=== PATIENT | female | born 1955 | race African-American/Black ===

== ENCOUNTER 2019-12-01 08:26 | Outpatient (CLI) | payer MEDICARE, MEDICAID, SELFPAY ==
[2019-12-01 09:18] LABS: Basophils Percent Auto 0.4 % (0.2-1.2); Eosinophils Absolute Auto 0.2 K/mm3 (0-0.3); Eosinophils Percent Auto 2.3 % (0-4.4); Hematocrit 40.6 % (37.0-47.0); Hemoglobin 12.9 g/dL (12.0-15.0); Immature Granulocyte Absolute 0.03 K/mm3 (0.00-0.031); Immature Granulocyte Percent A 0.4 % (0-0.5); Lymphocytes Absolute Auto 3.84 K/mm3 (0.9-3.2); Lymphocytes Percent Auto 55.3 % (18.3-44.2); Mean Corpuscular HGB Conc 31.8 g/dl (32-36); Mean Corpuscular Hemoglobin 27.6 pg (26-34); Mean Corpuscular Volume 86.9 fl (80-100); Mean Platelet Volume 10.2 fl (7.4-10.4); Monocytes Absolute Auto 0.5 K/mm3 (0.1-0.6); Monocytes Percent Auto 6.5 % (2.6-8.5); Neutrophils Absolute Auto 2.4 K/mm3 (1.3-6.7); Neutrophils Percent Auto 35.1 % (45.5-73.1); Platelet Count Result 279 k/mm3 (150-375); Red Blood Count 4.67 M/mm3 (4.2-5.4); Red Cell Distribution Width 12.9 % (11.5-14.5)
[2019-12-01 09:45] LABS: Creatinine Urine 102.8 mg/dL
[2019-12-01 09:51] LABS: MALB Creatinine Ratio < 5.8 mg/g (0-30); Microalbumin Urine Random < 6.0 mg/L (0-16.7)
[2019-12-01 09:59] LABS: Free T4 Free Thyroxine 0.99 ng/mL (0.78-2.19); Vitamin D 25 Hydroxy 13.2 ng/mL
[2019-12-01 11:01] LABS: Alanine Aminotransferase 18 U/L (4-35); Albumin Level 4.1 g/dL (3.5-5.1); Alkaline Phosphatase 96 U/L (38-126); Aspartate Amino Transferase 21 U/L (14-36); Bilirubin,Total 0.3 mg/dL (0.2-1.3); Blood Urea Nitrogen 11 mg/dL (7-17); Calcium 9.5 mg/dL (8.4-10.2); Carbon Dioxide 25 mmol/L (22-30); Chloride 103 mmol/L (98-107); Cholesterol 171 mg/dL (0-200); Estimated Glomerular Filt Rate > 60; Glucose 101 mg/dL (65-105); HDL Direct 43 mg/dL; Potassium 4.1 mmol/L (3.4-5.0); Sodium 141 mmol/L (137-145); Triglycerides 101 mg/dL (<150)
[2019-12-01 11:12] LABS: LDL Cholesterol Direct 98 mg/dL
[2019-12-01 11:20] LABS: Hemoglobin A1C 5.9 % (<5.7)
[2019-12-01 11:31] LABS: Total Triiodothyronine (T3) 1.37 NG/ML (0.97-1.69)
== END 2019-12-01 08:27 | disposition home or self-care (01) ==
PROVIDERS: PCP Family Medicine; Visit Provider Family Medicine
DX: K21.9 Gastro-esophageal reflux disease without esophagitis (principal); I10 Essential (primary) hypertension; E11.9 Type 2 diabetes mellitus without complications; E55.9 Vitamin D deficiency, unspecified; R80.9 Proteinuria, unspecified
CPT/HCPCS: 36415; 80053; 80061; 82043; 82306; 83036; 84439; 84443; 84480; 85025

== ENCOUNTER 2020-10-10 11:46 | Outpatient (CLI) | payer MEDICARE, MEDICAID, SELFPAY ==
[2020-10-10 12:22] LABS: Basophils Percent Auto 0.5 % (0.2-1.2); Eosinophils Absolute Auto 0.1 K/mm3 (0-0.3); Eosinophils Percent Auto 1.7 % (0-4.4); Hematocrit 41.8 % (37.0-47.0); Hemoglobin 13.3 g/dL (12.0-15.0); Immature Granulocyte Absolute 0.02 K/mm3 (0.00-0.031); Immature Granulocyte Percent A 0.3 % (0-0.5); Lymphocytes Absolute Auto 2.86 K/mm3 (0.9-3.2); Lymphocytes Percent Auto 45.3 % (18.3-44.2); Mean Corpuscular HGB Conc 31.8 g/dl (32-36); Mean Corpuscular Hemoglobin 28.2 pg (26-34); Mean Corpuscular Volume 88.6 fl (80-100); Mean Platelet Volume 9.5 fl (7.4-10.4); Monocytes Absolute Auto 0.4 K/mm3 (0.1-0.6); Neutrophils Absolute Auto 2.9 K/mm3 (1.3-6.7); Neutrophils Percent Auto 45.2 % (45.5-73.1); Platelet Count Result 286 k/mm3 (150-375); Red Blood Count 4.72 M/mm3 (4.2-5.4); Red Cell Distribution Width 12.9 % (11.5-14.5); White Blood Count 6.3 K/mm3 (4.5-10.0)
[2020-10-10 12:34] LABS: Alanine Aminotransferase 19 U/L (4-35); Albumin Level 3.9 g/dL (3.5-5.1); Alkaline Phosphatase 88 U/L (38-126); Anion Gap 8 mmol/L (8-16); Aspartate Amino Transferase 20 U/L (14-36); Bilirubin,Total 0.5 mg/dL (0.2-1.3); Blood Urea Nitrogen 7 mg/dL (7-17); Carbon Dioxide 26 mmol/L (22-30); Chloride 107 mmol/L (98-107); Cholesterol 165 mg/dL (0-200); Estimated Glomerular Filt Rate > 60; Glucose 115 mg/dL (65-105); HDL Direct 40 mg/dL; Sodium 141 mmol/L (137-145); Triglycerides 227 mg/dL (<150)
[2020-10-10 12:36] LABS: Hemoglobin A1C 5.8 % (<5.7)
[2020-10-10 12:46] LABS: LDL Cholesterol Direct 88 mg/dL
[2020-10-10 12:52] LABS: Creatinine Urine 129.8 mg/dL
[2020-10-10 13:04] LABS: MALB Creatinine Ratio < 4.6 mg/g (0-30); Microalbumin Urine Random < 6.0 mg/L (0-16.7)
[2020-10-10 13:05] LABS: Total Triiodothyronine (T3) 1.51 NG/ML (0.97-1.69)
[2020-10-10 13:07] LABS: Free T4 Free Thyroxine 0.81 ng/mL (0.78-2.19)
== END 2020-10-10 11:47 | disposition home or self-care (01) ==
LOC: ANHLAB 11:51
PROVIDERS: PCP Family Medicine; Visit Provider Nurse Practitioner
DX: E55.9 Vitamin D deficiency, unspecified (principal); R73.01 Impaired fasting glucose; E66.01 Morbid (severe) obesity due to excess calories; I10 Essential (primary) hypertension; Z00.00 Encounter for general adult medical examination without abnormal findings
CPT/HCPCS: 36415; 80053; 80061; 82043; 82306; 83036; 84439; 84443; 84480; 85025

== ENCOUNTER 2021-02-07 20:03 | Inpatient (IN) | payer MEDICARE, MEDICAID, SELFPAY ==
--- NOTE | ~2021-02-07 | MR_ITS ---
EXAMINATION: MR brain/brain stem wo/w con DATE: 02/08/2021 12:31 INDICATION: Slurred speech. TECHNIQUE: Magnetic resonance imaging (MRI) of the brain and brainstem was performed without and with 20 mL MultiHance intravenous contrast. Sequences included sagittal and axial T1-weighted FSE, axial diffusion-weighted FS EPI, axial T2*-weighted GRE, axial T2-weighted FLAIR Propeller, and axial T2-we ighted Propeller. Postcontrast sequences included axial and coronal T1-weighted FSE. Apparent diffusi on coefficient (ADC) maps were created. COMPARISON: Head CT 02/08/2021, brain MRI 10/27/2007 FINDINGS: There are acute infarcts in the left basal ganglia and internal capsule. There is an old in farct involving the right basal ganglia, internal capsule, and metcalf radiata. There are scattered ar eas of nonspecific increased T2-weighted signal intensity in the cerebral white matter. There is no i ntracranial hemorrhage or abnormal mass lesion. The ventricles are normal in size. The orbits are nor mal. The paranasal sinuses are clear. The mastoid air cells are normal. IMPRESSION: 1. Acute infarcts in the left basal ganglia and internal capsule. 2. Old infarct involving the right basal ganglia, internal capsule, and metcalf radiata. 3. Mild nonspecific cerebral white matter disease, which likely represents chronic small vessel ische karson disease. Reviewed, dictated and finalized at location A. IMPRESSION: 1. Acute infarcts in the left basal ganglia and internal capsule. 2. Old infarct involving the right basal ganglia, internal capsule, and metcalf radiata. 3. Mild nonspecific cerebral white matter disease, which likely represents calculation reviewer queenie small vessel ischemic disease.
--- NOTE | ~2021-02-07 | CT_ITS ---
EXAMINATION: CTA brain carotid EXAM DATE: 02/08/2021 10:02 INDICATION: Headache and dizziness. History of stroke. TECHNIQUE: Noncontrast head CT. Spiral CTA of the carotid arteries was performed with intravenous i njection 100 cc of Omnipaque 350. Axial, coronal, sagittal reformatted images reviewed. Additional r eformatted images created on dedicated 3-D workstation. NASCET comparable standard used to assess th e degree of arterial stenosis. Spiral CT angiogram cerebral arteries performed with the same intrave nous injection of contrast. Source images of the brain CTA transferred to dedicated workstation for 3 -D rotational image creation. Coronal, sagittal maximum intensity pixel images also reviewed. The d ose-length product (DLP) for this examination was 1611.91 mGy-cm. The exposure was tailored accordi ng to patient size, and iterative reconstruction (ASIR) was used as additional dose reduction techniq ue. Comparison is made to prior examination from 10/29/2018. FINDINGS: There is no carotid bulb plaque, 0% stenosis bilaterally. The left vertebral artery is barbara nant. Basilar artery fenestration, not a clinically significant finding. There is no carotid or vert ebral basilar arterial dissection or fibromuscular dysplasia. There are no cerebral artery aneurysms. There is symmetric cerebral artery arborization. The sagittal, transverse and sigmoid sinuses enhanc e normally, no venous sinus thrombosis. Internal cerebral veins also enhance normally. There is no acute intraparenchymal hemorrhage. No evidence of intraparenchymal brain mass lesion. N o evidence of acute infarction. There is mild periventricular and subcortical hypodensity, nonspecifi c but probably related to small vessel ischemic disease. There is mild prominence of the sulci and ventricles related to cerebral atrophy. There is intracranial carotid arteriosclerosis. There is no mass effect or midline shift. There is no obstructive hydrocephalus suspected. There are no extra -axial collections. There are no calvarial acute fractures. Mild apical emphysema. IMPRESSION: 1. No acute carotid or intracranial findings. 2. Bilateral carotid bulb 0% stenosis. 3. Mild age-related intracranial findings. Reviewed, dictated and finalized at location A.
--- NOTE | ~2021-02-07 | CT_ITS ---
EXAMINATION: CT brain wo con DATE: 02/07/2021 22:07 INDICATION: Headache TECHNIQUE: Computed tomography (CT) of the head was performed without intravenous contrast. Sagittal and coronal reconstructions were performed. The mA was adjusted according to patient size. Iterative reconstruction technique was employed. The dose-length product was 605.33 mGy-cm. COMPARISON: head CT dated 10/29/2018 FINDINGS: No acute intracranial hemorrhage, acute infarction or abnormal extra axial fluid collection. No inter sandi change in mild scattered white matter hypoattenuation most prominent in the deep right frontal wh ite matter. Ventricles are normal and symmetric. No mass/mass effect. Mild intracranial calcified cer ebral atherosclerosis is noted at the carotid siphons. The orbits, paranasal sinuses and mastoid air cells are normal. IMPRESSION: 1. Unchanged mild nonspecific cerebral white matter hypoattenuation consistent with chronic small ves lilliam ischemic disease. No acute intracranial process. Reviewed, dictated and finalized at location A. IMPRESSION: 1. Unchanged mild nonspecific cerebral white matter hypoattenuation consistent with chronic small vessel ischemic disease. No acute intracranial process.
[2021-02-07 20:10] VITALS: BP 132/63; PULSE 80; RESP 15; TEMP 36.3; O2SAT 100
[2021-02-07 21:20] LABS: Anion Gap 7 mmol/L (8-16); Blood Urea Nitrogen 18 mg/dL (7-17); Calcium 9.1 mg/dL (8.4-10.2); Carbon Dioxide 25 mmol/L (22-30); Chloride 109 mmol/L (98-107); Estimated CRCL calculation 69 ml/min; Estimated Glomerular Filt Rate > 60; Glucose 92 mg/dL (65-105); Sodium 141 mmol/L (137-145)
--- NOTE | 2021-02-07 21:26 | ED.GENADULT ---
HPI - General Adult General Chief complaint: Allergic Reaction Stated complaint: ALLERGIC REACTION TO COVID-19 VAC #2 Time Seen by Provider: 02/07/21 21:10 Source: patient Mode of arrival: ambulatory Limitations: no limitations History of Present Illness HPI narrative: Patient is a 65-year-old female complaining of slurred speech, headache, dizziness and body aches after getting a second shot of her Moderna vaccine around 9am yesterday morning. Patient's headache is right frontal, 5 out of 10, throbbing, nonradiating. Patient currently denies being dizzy. Patient denies any chest pain, shortness of breath abdominal pain, nausea, vomiting, fever or chills. Patient denies any lip, tongue or throat swelling. Related Data Allergies Allergy/AdvReac Type Severity Reaction Status Date / Time No Known Allergies Allergy Verified 04/27/19 23:40 Review of Systems Review of Systems: All systems reviewed & are unremarkable except as noted in HPI and below Constitutional: Constitutional: Denies body ache(s), Denies chills, Denies excessive sweating, Denies fatigue, Denies fever(s), Denies headache(s), Denies lethargy, Denies malaise, Denies weakness and Denies weight loss Eyes: Eyes: Denies blurry vision, Denies change in vision and Denies loss of vision ENT: Denies dizziness, Denies ear discharge, Denies headache(s), Denies lip swelling, Denies epistaxis, Denies nasal congestion, Denies neck pain, Denies throat swelling and Denies tongue swelling Cardiovascular: Cardiovascular: Denies chest pain, Denies chest pain at rest, Denies chest pain with activity, Denies diaphoresis, Denies rapid heart rate, Denies edema, Denies irregular heart rhythm, Denies lightheadedness, Denies palpitations, Denies dyspnea and Denies dyspnea on exertion Respiratory: Respiratory: Denies chest congestion, Denies cough, Denies hemoptysis, Denies dyspnea and Denies dyspnea on exertion Gastrointestinal: Gastrointestinal: Denies abdominal pain, Denies melena, Denies hematochezia, Denies diarrhea, Denies nausea, Denies vomiting and Denies hematemesis Musculoskeletal: Musculoskeletal: Denies abnormal gait, Denies deformity, Denies joint swelling, Denies limited range of motion, Denies neck pain and Denies numbness Neurologic: Denies Abnormal speech present, Denies abnormal gait, Denies confusion, Denies focal weakness, Denies loss of vision, Denies numbness, Denies Other visual disturbances, Denies Sensory deficit (Neuro) and Denies weakness Psychiatric: Psychiatric: Denies confusion, Denies depression, Denies auditory hallucinations, Denies homicidal ideation and Denies suicidal ideation Endocrine: Endocrine: Denies cold intolerance, Denies excessive sweating, Denies fatigue, Denies heat intolerance and Denies palpitations Hematologic/Lymphatic: Hematologic/Lymphatic: Denies easy bleeding and Denies easy bruising Allergic/Immunologic: Allergic/Immunologic: Denies lip swelling, Denies throat swelling and Denies tongue swelling PMFSH Family History Family History Mother Family history of malignant neoplasm of cervix Father No family history of malignant neoplasm Social History Social History Second hand tobacco smoke exposure: No Smoking end date: 10/14/10 Gender identity (if verbalized by the patient): Female Exam Const: General: cooperative, healthy appearing, comfortable, no acute distress, well developed, alert and awake; No confusion Orientation/consciousness: oriented to person, oriented to place, oriented to time, patient oriented x3 and No confusion Limitations: no limitations HENMT: Head: normal to inspection, normocephalic and atraumatic Ears: hearing grossly normal bilaterally, TM normal on the right and TM normal on the left General nose exam: Normal external nose present, Normal nares present and No nasal discharge present Face and s
--- NOTE | 2021-02-07 21:30 | ECG_ITS ---
Measurements Intervals [place] Rate: 58 P: 63 LA: 221 QRS: -21 QRSD: 84 T: 26 QT: 444 QTc: 438 Interpretive Statements SINUS BRADYCARDIA WITH SINUS ARRHYTHMIA WITH FIRST DEGREE AV BLOCK BASELINE ARTIFACT- I, II, III, AVR, AVL ABNORMAL ECG Electronically Signed On 02-08-2021 7:04:28 CDT by Suman Cortes D.O.
[2021-02-07 21:32] LABS: Basophils Percent Auto 0.6 % (0.2-1.2); Eosinophils Absolute Auto 0.1 K/mm3 (0-0.3); Hematocrit 43.1 % (37.0-47.0); Hemoglobin 13.4 g/dL (12.0-15.0); Immature Granulocyte Absolute 0.02 K/mm3 (0.00-0.031); Immature Granulocyte Percent A 0.3 % (0-0.5); Lymphocytes Absolute Auto 2.71 K/mm3 (0.9-3.2); Lymphocytes Percent Auto 39.4 % (18.3-44.2); Mean Corpuscular HGB Conc 31.1 g/dl (32-36); Mean Corpuscular Volume 90.2 fl (80-100); Mean Platelet Volume 9.8 fl (7.4-10.4); Monocytes Absolute Auto 0.5 K/mm3 (0.1-0.6); Monocytes Percent Auto 7.9 % (2.6-8.5); Neutrophils Absolute Auto 3.5 K/mm3 (1.3-6.7); Neutrophils Percent Auto 50.8 % (45.5-73.1); Platelet Count Result 282 k/mm3 (150-375); Red Blood Count 4.78 M/mm3 (4.2-5.4); Red Cell Distribution Width 12.5 % (11.5-14.5); White Blood Count 6.9 K/mm3 (4.5-10.0)
[2021-02-07 22:04] LABS: Troponin I < 0.012 ng/mL (0.000-0.034)
[2021-02-07] MEDS: ASPIRIN 81 MG CHEWABLE TABLET 324 MG PO (23:06)
[2021-02-07] MEDS: KETOROLAC 30 MG/ML VIAL (*BKC) IV PUSH (23:07)
[2021-02-07] MEDS: HYDROcodone/acetaminophen (*CRX) 5-325 MG TABLET 1 TAB PO (23:07)
[2021-02-07] MEDS: SODIUM CHLORIDE 0.9% IV 1,000 ML 500 ML IV CONT (23:10)
[2021-02-07 23:20] VITALS: BP 136/70; PULSE 82; RESP 15; O2SAT 100
[2021-02-07 23:55] VITALS: BP 111/66; PULSE 50; RESP 20; TEMP 36.1; O2SAT 100; BMI 32.6
[2021-02-08] VITALS (8 sets, daily range): BP systolic 112–128; BP diastolic 58–62; PULSE 52–67; RESP 16–18; TEMP 36.1–36.9; O2SAT 97–98
--- NOTE | 2021-02-08 | ECHO_ITS ---
Patient Info Name: Alexandre Claros Age: 65 years : 1955 Gender: Female Ht: 69 in Wt: 221 lbs BSA: 2.24 m2 HR: 55 bpm BP: 112 / 58 mmHg Heart Rhythm: Bradycardia Technical Quality: Good Exam Date: 02/08/2021 10:02 AM Exam Location: [facility] Pulmonary Patient Status: Outpatient Admit Date: 02/07/2021 Staff Ordering Physician: Yessy Cardozo NP Parts Back Counter Man: Tiago Vargas RDCS, RT Attending Provider: Shilpa Talavera PA-C Referring Physician: Cas CHACON; Exam Type: CA echo doppler w bubble study Study Info Indications G45.8 - Other transient cerebral ischemic attacks and related syndromes Complete two-dimensional, color flow and Doppler transthoracic echocardiogram is performed. Strain analysis performed. Summary 1. Complete two-dimensional, color flow and Doppler transthoracic echocardiogram is performed. 2. There is mildly increased left ventricular wall thickness. 3. The left ventricular diastolic function is grade II diastolic dysfunction. 4. Global longitudinal strain is normal at -19 %. 5. Left atrial chamber dimension is mildly enlarged. 6. No intracardiac shunt at the atrial level with color-flow Doppler normal with injection of agitated saline with and without Valsalva. 7. There is no aortic valve stenosis. 8. There is trace mitral valve regurgitation. 9. There is trace tricuspid valve regurgitation. 10. Unable to estimate PA systolic pressure due to poor spectral resolution of tricuspid regurgitant jet velocity. Recommendations * Consider transesophageal echocardiogram if clinically indicated. Left Ventricle Left ventricular chamber dimension is normal. There is mildly increased left ventricular wall thickness. The left ventricular diastolic function is grade II diastolic dysfunction. Global longitudinal strain is normal at -19 %. Right Ventricle Right ventricular chamber dimension is normal. Right ventricular systolic function is normal. Left Atria Left atrial chamber dimension is mildly enlarged. Right Atria Right atrial chamber dimension is normal. Atrial Septum No intracardiac shunt at the atrial level with color-flow Doppler normal with injection of agitated saline with and without Valsalva. Aortic Valve The aortic valve is not well visualized. There is mild aortic valve sclerosis. There is no aortic valve stenosis. There is no aortic valve regurgitation. Pulmonic Valve The pulmonic valve is not well visualized. Mitral Valve The mitral valve has normal leaflets. There is trace mitral valve regurgitation. The mitral valve annulus is mildly calcified. Tricuspid Valve The tricuspid valve leaflets are normal. There is trace tricuspid valve regurgitation. Unable to estimate PA systolic pressure due to poor spectral resolution of tricuspid regurgitant jet velocity. Pericardium/Pleural The pericardium appears normal. There is no pericardial effusion. Inferior Vena Cava Normal inferior vena cava with >50% collapse upon inspiration consistent with normal right atrial pressure, 5 mmHg. Aorta The aortic root size at the sinus of Valsalva is normal. There is mild aortic atherosclerosis. Left Ventricular Outflow Tract Name Value Normal LVOT 2D
--- NOTE | 2021-02-08 00:14 | ADMGEN ---
This patient, Alexandre Claros, was admitted to 3 [facility] Surg Room 309-01. Patient/family oriented to hospital policies and general routines including ID bracelet, bed and alarms, visiting hours, pain management, procedures, bathroom and other care routines, personal items, smoking policy, room service/diet, and visiting hours. Information on how to activate the Rapid Response Team has been discussed. Patient/Family are encouraged to report perceived risks to care and to ask questions if they do not understand what they are told or what they should do.
[2021-02-08] MEDS: LACTATED RINGERS 1,000 ML 125 ML IV CONT ×2 (03:15→14:11)
[2021-02-08 06:30] LABS: Basophils Percent Auto 0.6 % (0.2-1.2); Eosinophils Absolute Auto 0.1 K/mm3 (0-0.3); Eosinophils Percent Auto 1.4 % (0-4.4); Hematocrit 38.6 % (37.0-47.0); Hemoglobin 12.3 g/dL (12.0-15.0); Immature Granulocyte Absolute 0.02 K/mm3 (0.00-0.031); Immature Granulocyte Percent A 0.3 % (0-0.5); Lymphocytes Absolute Auto 3.93 K/mm3 (0.9-3.2); Lymphocytes Percent Auto 54.7 % (18.3-44.2); Mean Corpuscular HGB Conc 31.9 g/dl (32-36); Mean Corpuscular Hemoglobin 27.9 pg (26-34); Mean Corpuscular Volume 87.5 fl (80-100); Mean Platelet Volume 10.1 fl (7.4-10.4); Monocytes Absolute Auto 0.5 K/mm3 (0.1-0.6); Monocytes Percent Auto 7.5 % (2.6-8.5); Neutrophils Absolute Auto 2.6 K/mm3 (1.3-6.7); Neutrophils Percent Auto 35.5 % (45.5-73.1); Platelet Count Result 301 k/mm3 (150-375); Red Blood Count 4.41 M/mm3 (4.2-5.4); Red Cell Distribution Width 12.4 % (11.5-14.5); White Blood Count 7.2 K/mm3 (4.5-10.0)
[2021-02-08 06:40] LABS: Alanine Aminotransferase 15 U/L (4-35); Albumin Level 3.9 g/dL (3.5-5.1); Alkaline Phosphatase 92 U/L (38-126); Anion Gap 4 mmol/L (8-16); Aspartate Amino Transferase 19 U/L (14-36); Blood Urea Nitrogen 15 mg/dL (7-17); Calcium 8.7 mg/dL (8.4-10.2); Carbon Dioxide 27 mmol/L (22-30); Chloride 111 mmol/L (98-107); Estimated CRCL calculation 78 ml/min; Estimated Glomerular Filt Rate > 60; Glucose 98 mg/dL (65-105); Magnesium 2.1 mg/dL (1.6-2.3); Potassium 3.9 mmol/L (3.4-5.0); Sodium 142 mmol/L (137-145)
[2021-02-08 08:13] LABS: Free T4 Free Thyroxine Reflex 0.95 ng/dL (0.78-2.19)
[2021-02-08] MEDS: ATORVASTATIN 40 MG TABLET PO (09:14)
[2021-02-08] MEDS: ASPIRIN 325 MG TABLET PO (09:16)
[2021-02-08] MEDS: amLODIPine BESYLATE 5 MG TABLET PO (09:16)
[2021-02-08] MEDS: LORazepam INJ (*CRX) 2 MG/ML VIAL 0.5 MG IV PUSH (11:58)
--- NOTE | 2021-02-08 14:59 | PM.IMHP ---
H&P: HPI History of Present Illness Date/Time: 02/08/21 14:59 Chief Complaint: Slurred speech Narrative: Patient is a 65-year-old female with a past medical history of hypertension and a recent bilateral stroke in November 2020 who presented emergency room for slurred speech and facial droop after getting her Pfizer vaccine 02/06/21. Patient states that the slurred speech started pretty quickly after the vaccine but she went home and rested for a while thinking it would go way. She also had associated headache and blurred vision. She denied any numbness or tingling to any part of the body, problems with walking, or word-finding. She tells me that she had a stroke back in December but when looking at records it looks like it was November 23. She states at the time of her 1st stroke in November,, she was able to be discharged without physical therapy and was able to do her activities of daily living without issue. She was started on a 81 mg of aspirin at discharge and has been taking it routinely. During her 1st stroke, her symptoms consisted of left-sided weakness but have resolved completely and these new symptoms started 02/06/21. Today she thinks the symptoms are about the same and has not noticed any improvement or worsening. She denies chest pain, shortness of breath, dysuria, cough, fever, diarrhea, constipation, abdominal pain, heart racing or palpitations. She has no history of blood clots and does not take any hormone replacement therapy. She has never had a Holter monitor. Records indicate that when she had her stroke in November 2020, she had an active COVID-19 infection at that time. I spoke with Dr. Gupta at [facility] who reviewed her records with me and her new symptoms. He states that they recommended on discharge that she get a NAVYA and a operations assistant but this was delayed due to COVID-19. Review of Systems Review of Systems: All systems reviewed & are unremarkable except as noted in HPI and below PMFSH Past Medical History Medical History (Updated 02/08/21 @ 15:06 by Shilpa Talavera PA-C) History of COVID-02 December 2020 History of CVA (cerebrovascular accident) November 2020 at [facility] Hypertension Family History Family History Mother Family history of malignant neoplasm of cervix Father No family history of malignant neoplasm Social History Social History (Updated 02/08/21 @ 15:07 by Shilpa Talavera PA-C) Social History: Patient states that she quit smoking about 3 weeks ago and prior to that she smoked 7 cigarettes a day. She does not smoke marijuana, do drugs, or drink alcohol. She is retired cleaning personnel. She would like to be a full code. She has no allergies to food or medications Smoking status: Former smoker Second hand tobacco smoke exposure: No Smoking end date: 10/14/10 Alcohol intake: never Substance use: never Substance use type: does not use Gender identity (if verbalized by the patient): Female Spiritual care concerns: No Meds Home Medications and Allergies Home Medications Medication Instructions Recorded Confirmed Type amlodipine 5 mg PO DAILY 02/08/21 02/08/21 History atorvastatin 40 mg PO DAILY 02/08/21 02/08/21 History ergocalciferol (vitamin D2) 1,250 mcg PO WEEKLY 02/08/21 02/08/21 History nicotine 21 mg TRANSDERMAL DAILY 02/08/21 02/08/21 History Allergies Allergy/AdvReac Type Severity Reaction Status Date / Time No Known Allergies Allergy Verified 04/27/19 23:40 Vital Signs Vital Signs - 24 hr 02/07/21 20:10 02/07/21 23:20 02/07/21 23:55 Temperature 97.4 F L 97.0 F L Pulse Rate 80 82 50 L Respiratory Rate 15 15 20 Blood Pressure 132/63 136/70 111/66 Pulse Oximetry 100 100 100 02/08/21 05:30 02/08/21 14:00 Temperature 98.3 F 97.0 F L Pulse Rate 58 L 62 Respiratory Rate 18 16 Blood Pressure 112/58 L 128/62 Pulse Oximetry 97 98 Exam Narrative: Exam
[2021-02-09] VITALS (22 sets, daily range): BP systolic 116–176; BP diastolic 51–136; PULSE 47–88; RESP 12–18; TEMP 36.7–37.1; O2SAT 97–100
--- NOTE | 2021-02-09 | ECHO_ITS ---
Patient Info Name: Alexandre Claros Age: 65 years : 1955 Gender: Female Ht: 69 in Wt: 221 lbs BSA: 2.24 m2 HR: 110 bpm BP: 124 / 78 mmHg Technical Quality: Good Exam Date: 02/09/2021 9:24 AM Exam Location: [facility] Pulmonary Exam Room: [facility] Patient Status: Inpatient Admit Date: 02/08/2021 Staff Ordering Physician: Shilpa Talavera PA-C Fisheries Officer: Carolina Pollack RDCS Attending Provider: Shilpa Talavera PA-C Referring Physician: Sadaf GALE; Exam Type: CA echo transesophageal Study Info Indications - bilateral stroke Complete two-dimensional, color flow and Doppler transesophageal study is performed. Contrast/Agitated Saline Contrast/Ag. Saline: Agitated Saline Amount: 20.00 ml Medications Conscious sedation was achieved by using Versed total of 4 mg and Fentanyl 75 mcg. medications were given by RN under my direct supervision. Start time was 10:02 am, end time 10:21 am. Procedure Details The patient arrived in a fasting state after obtaining informed consent. The transesophageal probe was passed into the posterior pharynx, mid-esophagus, distal esophagus, and gastric fundus. Imaging was performed at multiple levels. The patient tolerated the procedure well and there were no complications. The patient was transferred out of the examination area in satisfactory condition. Summary 1. Complete 2D transesophageal study is performed No source of emboli identified No left atrial appendage dense smoke or thrombus noted Bubble study is negative for PFO or any intra atrial shunt Normal LV systolic function, EF 60-65% No significant valvular disease. Left Ventricle Left ventricular chamber dimension is normal. Left ventricular systolic function is normal with an ejection fraction by Biplane Method of Discs of 60-65 %. Right Ventricle Right ventricular chamber dimension is normal. Right ventricular systolic function is normal. Left Atria Left atrial chamber dimension is normal. Right Atria Right atrial chamber dimension is normal. Atrial Septum No PFO by color flow or by agitated saline study. Atrial Appendage Left atrial appendage is normal with normal velocity. No left atrial appendage dense smoke or thrombus noted. Aortic Valve The aortic valve is trileaflet. There is no aortic valve sclerosis. There is no aortic valve stenosis. There is no aortic valve regurgitation. Pulmonic Valve The pulmonic valve is normal. There is no pulmonic valve stenosis. There is no pulmonic regurgitation. Mitral Valve The mitral valve has normal leaflets. There is no mitral valve stenosis. There is trace mitral valve regurgitation. Tricuspid Valve The tricuspid valve leaflets are normal. There is no significant tricuspid valve stenosis. There is trace tricuspid valve regurgitation. Pericardium/Pleural The pericardium appears normal. There is Empty pericardial effusion. Inferior Vena Cava Normal inferior vena cava with <50% collapse upon inspiration consistent with Empty right atrial pressure, Empty. Aorta The aortic root size at the sinus of Valsalva is normal. The prox ascending aorta size is normal. Ventricles Name Value Normal LV Fractional Shortening/Ejection Fraction 2D/MM -----
[2021-02-09 05:50] LABS: Hematocrit 37.5 % (37.0-47.0); Hemoglobin 11.9 g/dL (12.0-15.0); Mean Corpuscular HGB Conc 31.7 g/dl (32-36); Mean Corpuscular Hemoglobin 27.6 pg (26-34); Mean Platelet Volume 10.1 fl (7.4-10.4); Platelet Count Result 273 k/mm3 (150-375); Red Blood Count 4.31 M/mm3 (4.2-5.4); Red Cell Distribution Width 12.3 % (11.5-14.5)
[2021-02-09 06:06] LABS: INR 0.9
[2021-02-09 06:08] LABS: Partial Thromboplastin Time 28.1 SECONDS (22.3-36.8)
[2021-02-09 06:16] LABS: LDL Cholesterol Direct 53 mg/dL
[2021-02-09 06:19] LABS: Anion Gap 3 mmol/L (8-16); Blood Urea Nitrogen 16 mg/dL (7-17); Calcium 9.1 mg/dL (8.4-10.2); Carbon Dioxide 28 mmol/L (22-30); Chloride 109 mmol/L (98-107); Cholesterol 110 mg/dL (0-200); Estimated CRCL calculation 88 ml/min; Estimated Glomerular Filt Rate > 60; Glucose 100 mg/dL (65-105); HDL Direct 34 mg/dL; Magnesium 2.1 mg/dL (1.6-2.3); Potassium 4.3 mmol/L (3.4-5.0); Sodium 140 mmol/L (137-145); Triglycerides 117 mg/dL (<150)
--- NOTE | 2021-02-09 10:26 | SUR.PHASEII ---
BEGIN PHASE II RECOVERY S/P SUCCESSFUL NAVYA W/ DR. FITZPATRICK IN BEHAVIOUR SUPPORT TEACHER 7. AROUSABLE. VSS. DENIES PAIN OR SOB. WILL CONTINUE TO MONITOR.
--- NOTE | 2021-02-09 11:40 | SUR.PHASEII ---
END PHASE II RECOVERY. RETURNED TO MED SURG 309 VIA BED ON TELE MONITOR. REPORT HAS BEEN GIVEN TO JUSTIN ROJAS AT 1125. FULLY AWAKE AND ALERT, DROWSY AT TIMES. DENIES SOB OR PAIN. VSS. SPEECH THERAPY TO BEDSIDE UPON RETURN TO 309.
[2021-02-09] MEDS: ATORVASTATIN 40 MG TABLET PO (12:03)
[2021-02-09] MEDS: ASPIRIN 81 MG ENTERIC TABLET PO (12:03)
[2021-02-09] MEDS: CLOPIDOGREL BISULFATE 75 MG TABLET PO (12:03)
--- NOTE | 2021-02-09 15:24 | PM.IMPN ---
Progress Note: A&P Assessment and Plan (1) Acute CVA (cerebrovascular accident): Code(s): I63.9 - Cerebral infarction, unspecified Status: Acute Assessment and Plan: MRI shows acute CVA in left internal capsule and basal ganglia -patient had stroke prior in November 2020 and at that time was bilateral. Records are on the chart. At the time of the original stroke, they recommended cardiac workup but this was delayed due to the patient's COVID-19 status. -will continue aspirin 81 mg, atorvastatin and plavix 75 mg x3 weeks per [facility] recommendations -suspect possible cardiac source since this is her 2nd stroke within 3 months but NAVYA was negative for PFO or thrombus -spoke with Dr. Quiros who will go for with either a loop recorder or a monitor outpatient -neurology consult, await their recommendations -PT/ST/OT assessment (2) Hypertension: Code(s): I10 - Essential (primary) hypertension Status: Acute Assessment and Plan: Last blood pressure 120/54 -will hold amlodipine at this time to allow for permissive hypertension (3) Slurred speech: Code(s): R47.81 - Slurred speech Status: Acute Assessment and Plan: Likely due to above -Agarwal's palsy less likely -continue with speech therapy (4) Elevated TSH: Code(s): R79.89 - Other specified abnormal findings of blood chemistry Status: Acute Assessment and Plan: Could be reactive since the T4 and T3 is normal -repeat outpt in 6 weeks Time Spent With Patient Time with patient: 25 - 35 minutes Subjective Date/time seen: 02/09/21 15:24 Interval history: Pt is a 65-year-old female here for new CVA. Patient was seen today and states she is feeling okay. She has no numbness, tingling or weakness to any extremity. She says she is still slurring her speech but it has improved a bit. We reviewed her condition and the possible etiologies of strokes. She stated that she has felt palpitations in the past. Last time she felt this was when she got her COVID vaccine. She has never had a heart monitor. Today she has had no chest pain, shortness of breath, fevers, chills, nausea, vomiting or abdominal pain. She no longer has double vision Review of Systems Review of Systems: All systems reviewed & are unremarkable except as noted in HPI and below Exam Narrative: Exam Narrative: General:Well developed well nourished patient resting comfortably in bed in no acute distress HEENT: Normocephalic, improving left eye with ptosis. Pupils reactive. Neck: Supple Resp: CTA Heart: RRR with no murmurs. Telemetry shows no arrhythmias Abd: Soft, nontender. No pain to palpation. Positive bowel sounds Skin: Warm and dry Extremities: No swelling, erythema or pain to palpation Neuro: Alert and Oriented x4. Right-sided facial droop (much improved). Able to do finger to nose bilaterally better today. Upper and lower extremity strength 5/5. Objective Data Vital Signs Vital Signs: Vital Signs - 24 hr 02/08/21 16:00 02/08/21 20:00 02/08/21 22:00 Temperature 98.5 F Pulse Rate 52 L 54 L 52 L Respiratory Rate 16 Blood Pressure 124/59 L Pulse Oximetry 97 02/08/21 23:10 02/09/21 00:00 02/09/21 04:00 Temperature Pulse Rate 58 L 53 L Respiratory Rate Blood Pressure Pulse Oximetry 97 02/09/21 06:00 02/09/21 08:00 02/09/21 09:55 Temperature 98.0 F Pulse Rate 55 L 49 L 65 Respiratory Rate 18 12 Blood Pressure 128/66 155/111 H Pulse Oximetry 97 98 02/09/21 10:00 02/09/21 10:05 02/09/21 10:10 Temperature Pulse Rate 57 L 88 67 Respiratory Rate 16 18 14 Blood Pressure 155/136 H 155/136 H 176/84 H Pulse Oximetry 99 100 100 02/09/21 10:15 02/09/21 10:20 02/09/21 10:25 Temperature Pulse Rate 64 62 55 L Respiratory Rate 14 17 12 Blood Pressure 160/78 H 132/83 149/75 H Pulse Oximetry 100 100 100 02/09/21 10:30 02/09/21 10:45 02/09/21 11:00 Temperature
[2021-02-09] MEDS: BENZOCAINE/MENTHOL (*BKC) 18 EA LOZENGE 1 LOZENGE PO (15:58)
--- NOTE | 2021-02-09 17:21 | PCSTNOTE ---
Please refer to the Bedside Swallow Evaluation in the EMR. Please note, silent aspiration cannot be ruled out at bedside.
--- NOTE | 2021-02-09 17:42 | WPDNEURCNPN ---
Assessment and Plan Assessment and plan (1) Acute CVA (cerebrovascular accident): Code(s): I63.9 - Cerebral infarction, unspecified Status: Acute Additional Plan bihemispheric subcortical strokes cardiac evaluation is being carried out then patient will be treated accordingly either with anti-platelet medication or anticoagulation therapy Consult date: 02/09/21 Time Seen: 18:00 HPI: Alexandre Claros is a 65 year old female admitted to the hospital for the complaints of slurring of the speech in addition to the history of 1. Hypertension 2. Recent bilateral stroke in November of 2019 and 3. History of recent 5 0 vaccine on February 06, 2021 patient reported he started having slurred speech right after receiving the vaccine but went home and rested for a while but she developed associated headache and blurred vision she was started on 81 mg of aspirin at discharge on a previous hospitalization for the stroke that time her symptomatology were consisted of left-sided weakness which was resolved completely on the day of admission this time she thought the symptomatology same with no improvement in the past she has never had Holter monitoring she has an active Koul infection at that particular time evaluation this time included which revealed acute infarct in left basal ganglia and internal capsule along with old infarct involving the right basal ganglia internal capsule and coronal radiata. Head neck CTA at this time reveals only 0% stenosis of bilateral carotid bulb and only mild age-related intracranial findings echocardiogram documented no significant valvular stenosis and mild enlargement the left atrial chamber for the transesophageal echocardiogram was suggested. Patient's routine lab studies are not significant Review of Systems Review of Systems: All systems reviewed & are unremarkable except as noted in HPI and below PMFSH Past Medical History Medical History History of COVID-02 December 2020 History of CVA (cerebrovascular accident) November 2020 at [facility] Hypertension Family History Family History Mother Family history of malignant neoplasm of cervix Father No family history of malignant neoplasm Social History Social History Social History: Patient states that she quit smoking about 3 weeks ago and prior to that she smoked 7 cigarettes a day. She does not smoke marijuana, do drugs, or drink alcohol. She is retired cleaning personnel. She would like to be a full code. She has no allergies to food or medications Smoking status: Former smoker Second hand tobacco smoke exposure: No Smoking end date: 10/14/10 Alcohol intake: never Substance use: never Substance use type: does not use Gender identity (if verbalized by the patient): Female Spiritual care concerns: No Meds Home Medications and Allergies Home Medications Medication Instructions Recorded Confirmed Type amlodipine 5 mg PO DAILY 02/08/21 02/08/21 History atorvastatin 40 mg PO DAILY 02/08/21 02/08/21 History ergocalciferol (vitamin D2) 1,250 mcg PO WEEKLY 02/08/21 02/08/21 History nicotine 21 mg TRANSDERMAL DAILY 02/08/21 02/08/21 History Allergies Allergy/AdvReac Type Severity Reaction Status Date / Time No Known Allergies Allergy Verified 04/27/19 23:40 Vital Signs Vital Signs - 24 hr 02/08/21 20:00 02/08/21 22:00 02/08/21 23:10 Temperature 36.9 C Pulse Rate 54 L 52 L Respiratory Rate 16 Blood Pressure 124/59 L Pulse Oximetry 97 97 02/09/21 00:00 02/09/21 04:00 02/09/21 06:00 Temperature 36.7 C Pulse Rate 58 L 53 L 55 L Respiratory Rate 18 Blood Pressure 128/66 Pulse Oximetry 97 02/09/21 08:00 02/09/21 09:55 02/09/21 10:00 Temperature Pulse Rate 49 L 65 57 L Respiratory Rate 12 16 Blood Pressure 155/111 H 155/136 H
[2021-02-09] MEDS: ACETAMINOPHEN 325 MG TABLET 650 MG PO (21:34)
[2021-02-10] VITALS: PULSE 57
[2021-02-10 04:00] VITALS: PULSE 84
[2021-02-10 05:48] VITALS: BP 146/67; PULSE 55; RESP 20; TEMP 36.7; O2SAT 100
[2021-02-10 08:00] VITALS: PULSE 53
[2021-02-10] MEDS: CLOPIDOGREL BISULFATE 75 MG TABLET PO (08:16)
[2021-02-10] MEDS: ATORVASTATIN 40 MG TABLET PO (08:16)
[2021-02-10] MEDS: ASPIRIN 81 MG ENTERIC TABLET PO (08:16)
[2021-02-10 12:00] VITALS: PULSE 72
--- NOTE | 2021-02-10 13:44 | PM.DS ---
DS: Admitting Diagnosis Admitting Diagnosis Admitting Diagnosis: slurred speech DS: Discharge Diagnosis Discharge Diagnosis (1) Acute CVA (cerebrovascular accident): Code(s): I63.9 - Cerebral infarction, unspecified Status: Acute Assessment and Plan: MRI shows acute CVA in left internal capsule and basal ganglia -patient had stroke prior in November 2020 and at that time was bilateral. Records are on the chart. At the time of the original stroke, they recommended cardiac workup but this was delayed due to the patient's COVID-19 status. -will continue aspirin 81 mg, atorvastatin and plavix 75 mg x3 weeks per [facility] recommendations -suspect possible cardiac source since this is her 2nd stroke within 3 months but NAVYA was negative for PFO or thrombus -spoke with Dr. Quiros who will go for with either a loop recorder or a monitor outpatient -pt okay to discharge with outpt PT/ST.OT with regular diet. (2) Hypertension: Code(s): I10 - Essential (primary) hypertension Status: Acute Assessment and Plan: Last blood pressure 125/67 -Continue home amlodipine (3) Slurred speech: Code(s): R47.81 - Slurred speech Status: Acute Assessment and Plan: Likely due to above -Agarwal's palsy less likely -continue with speech therapy (4) Elevated TSH: Code(s): R79.89 - Other specified abnormal findings of blood chemistry Status: Acute Assessment and Plan: Could be reactive since the T4 and T3 is normal -repeat outpt in 6 weeks DS: Summary Hospital Course Hospital Course: Pt is a 65 y/o female with a hx of HTN who previously had COVID and a stroke in nov 2020 who presented to the ED for slurred speech after receiving the pfizer COVID vaccine a few days prior. Vitals in the ER were temp 36.3, pulse 80, RR 15, bp 132/63 o[address] of the brain showed unchanged mild nonspecific cerebral white matter hypoattenuation consistent with chronic small vessel ischemic disease. No acute intracranial process.EKG showed sinus bradycardia with sinus arrhythmia with first degree AV block. Pt was admitted to the hospital service and observed. She continue to have slurred speech and facial droop. She underwent a head CTA which was negative for acute carotid or intracranial findings with bilateral carotid bulb stensosis at 0%. She then underwent a MRI which showed Acute infarcts in the left basal ganglia and internal capsule. [facility] contacted due to her hx and they recommended adding plavix and assessing for a cardiac source. She underwent a NAVYA which showed Complete 2D transesophageal study is performed No source of emboli, identified No left atrial appendage dense smoke or thrombus noted Bubble study is negative for PFO or any intra atrial shunt Normal LV systolic function, EF 60-65% No significant valvular disease. Pt worked with ST/PT/OT and did well. She had slurred speech but passed her swallow study. The day of discharge she was feeling better and her slurred speech had improved but not resolved. Pt was educated about the worrisome signs and symptoms to come back to the ER for and was discharged in stable condition to follow up with cardiology for a heart monitor and outpt ST. Status at Discharge Functional status at discharge: independent ambulation Overall status at discharge: patient is progressing back to baseline Time Spent with Patient Time attestation: Total time spent providing and/or coordinating discharge services:40 min Time spent: Greater than 30 minutes Exam Narrative: Exam Narrative: General:Well developed well nourished patient resting comfortably in bed in no acute distress HEENT: Normocephalic, improving left eye with ptosis. Pupils reactive. Neck: Supple Resp: CTA Heart: RRR with no murmurs. Telemetry shows no arrhythmias Abd: Soft, nontender. No pain to palpation. Positive bowel sounds Skin: Warm and dry Extremities: No swelling, erythema or
[2021-02-10 14:00] VITALS: BP 125/67; PULSE 57; RESP 16; TEMP 36.7; O2SAT 100
--- NOTE | 2021-02-10 14:35 | PC.NURSE ---
I instructed the patient to call when her ride was here to take the patient home. The patient was seen leaving down the back elevator across from her room. The patient did not notify any staff when she left. Prior to the patient leaving I had removed her IV and went over her discharge instructions with her.
--- NOTE | 2021-02-12 12:31 | PC.NURSE ---
Patient called 02/12/21 to state that her medications were not transferred to her pharmacy. Medications resent and called her pharmacy and received confirmation that they got the prescriptions.
--- NOTE | 2021-02-12 12:31 | PC.NURSE ---
Received a second phone call today asking where and when the patient is supposed to go to therapy. I educated the patient that her therapy is out patient and that she needs to take the scripts that I highlighted and labled therapy script and go to a therapy center of her choice.
== END 2021-02-10 14:35 | disposition home or self-care (01) | DRG 65 ==
LOC: ANHED 22:56 → ANH3MEDSUR 23:33
PROVIDERS: Emergency Medicine; Internal Medicine; Nurse Practitioner; Physician Assistant; Admitting Provider Family Medicine; Emergency Provider Emergency Medicine; PCP Family Medicine; Visit Provider Internal Medicine
PROC: B246ZZ4 Ultrasonography of Right and Left Heart, Transesophageal (ICD-10-PCS; CPT 93312; principal; 2021-02-09 09:30)
DX: I63.9 Cerebral infarction, unspecified (principal); G81.94 Hemiplegia, unspecified affecting left nondominant side; I10 Essential (primary) hypertension; Z87.891 Personal history of nicotine dependence; R47.81 Slurred speech
CPT/HCPCS: 36415; 70450; 70496; 70498; 70553; 80048; 80053; 80061; 83735; 84439; 84443; 84480; 84484; 85025; 85027; 85610; 85730; 92526; 92610; 93005; 93306; 93312; 93320; 93325; 96361; 96374; 96375; 97112; 97116; 97161; 97165; 97535; 99285; A9270; A9577; G0378; J1885; J2060; J2250; J3010; J7030; J7040; J7120; Q9967

== ENCOUNTER 2021-03-21 14:30 | Outpatient (RCR) | payer MEDICARE, MEDICAID, SELFPAY ==
--- NOTE | 2021-02-21 08:45 | STOPEVAL ---
SPEECH THERAPY INITIAL EVALUATION: Thank you for referring Alexandre Claros to [facility].? The patient is scheduled to be seen for therapy? 2x/week for 3 weeks. Please review, sign, date and return this plan of care EDOUARD. I agree with and certify that the following plan of care is medically necessary. Referring Physician Date Attending Provider: Shilpa Talavera PA-C Outpatient Past Medical History Past Medical History Source of Past Medical History Patient Neurological History Hx Cerebrovascular Accident (CVA) Yes: December 2020 Hx Other Neurological Disorders Yes: CVA x2; 3 weeks apart Cardiovascular History Hx Hypercholesterolemia Yes Hx Hypertension Yes Respiratory History Hx Respiratory Disorders No Significant History Gastrointestinal History Hx Gastrointestinal Disorders No Significant History Genitourinary History Hx Genitourinary Disorders No Significant History Musculoskeletal History Hx Musculoskeletal Disorders No Significant History Hematological History Hx Other Hematological Disorders Yes: vitamin D def Endocrine History Hx Endocrine Disorders No Significant History HEENT History Hx HEENT Disorders No Significant History Integumentary History Hx Skin Disorders No Significant History Reproductive History Hx Reproductive Disorders No Significant History Psychosocial History Hx Psychiatric Disorders No Significant History Pain History History of Any Previous or Ongoing No Significant History Instance of Pain Anesthesia History Hx Anesthesia Reactions No Significant History Evaluation Information Problem Diagnosis CVA x2 within the last 2 months Onset November & December 2020 Subjective Information My speech, people don't Query Text:As Reported By Patient/ understand what I'm saying Family Prior Level of Function Activity Level (Last 3 Months) Occupation retired Hand Dominance Right Activity of Daily Living Ability Independent Indoor/Home Mobility Independent Community Mobility Independent Stairs Ability Independent Functional Cognition (Planning, Shopping Independent , Taking Medications) Cooking Yes Cleaning Yes Laundry Yes Shopping Yes Driving Yes Home Setting Home Type House Living Situation Alone Support Available Local Family Support Cargiver Responsibilities Comment sister lives next door Mobility Assistive Devices (Used Last 3 None Months) Prior Swallow Level Prior Intake Method Oral Prior Diet Regular (Leve
--- NOTE | 2021-02-21 09:33 | PTOPEVAL ---
PHYSICAL THERAPY EVALUATION/DISCHARGE SUMMARY Thank you for referring Alexandre Claros to [facility] [place] Jolanta was evaluated for the dx of CVA. The patient has no skilled PT needs-DC PT at this time. Please review, sign, date and return this plan of care. I agree with and certify the following plan of care. Referring Physician Date Attending Provider: JHON EstradaPT Outpatient Evaluation Start: 02/21/21 08:33 Freq: Status: Active Protocol: Document 02/21/21 08:33 MLV (Rec: 02/21/21 09:20 MLV [id number]) Therapy Assessment Status Assessment Status Assessment Status Evaluation Evaluation Information Problem Diagnosis CVA Onset 01/07/21, 11/2020 Cause none Additional Evaluation Detail Patient lives alone and was I with all household activities, does not work, does yardwork, shopped, drove, cooked without any limits or deviations. Pt reports the second stroke had symptoms of speech changes and left arm weakness. Patient is right hand dominant. Patient feels she has no trouble with her legs or her balance but would like to do the eval to make sure all is normal . Prior Level of Function Activity Level (Last 3 Months) Occupation does not work Hand Dominance Right Activity of Daily Living Ability Independent Indoor/Home Mobility Independent Community Mobility Independent Stairs Ability Independent Functional Cognition (Planning, Shopping Independent , Taking Medications) Cooking Yes Cleaning Yes Laundry Yes Shopping Yes Driving Yes Home Setting Home Type House Environmental Barriers Railing, Ascend Right,Stairs, 2-4 Living Situation Alone Support Available Local Family Support Mobility Assistive Devices (Used Last 3 None Months) Pain Assessment Timing of Pain Assessment Timing of Pain Assessment Assessment Self Report Self Report Pain Level 0 Pain Score Pain Score 0: Self Report Upper Extremity Range of Motion General Upper Extremity Range of Motion Reason Not Measured WNL/Left,WNL/Right Lower Extremity Range of Motion
--- NOTE | 2021-03-01 15:13 | OTOPEVAL ---
OCCUPATIONAL THERAPY INITIAL EVALUATION REPORT 03/01/2021 Thank you for referring Alexandre Claros to [facility] [place].? The patient is scheduled to be seen for occupational therapy? 1x/week for 4 weeks. Please review, sign, date and return this plan of care EDOUARD. I agree with and certify that the following plan of care is medically necessary. Referring Physician Date Referring Provider: Shilpa Talavera PA-C *OT Outpatient Evaluation Start: 03/01/21 14:05 Therapy Assessment Status Assessment Status Assessment Status Evaluation Outpatient Past Medical History Past Medical History Source of Past Medical History Patient Neurological History Hx Cerebrovascular Accident (CVA) Yes: November 2020, December 2020 Cardiovascular History Hx Hypercholesterolemia Yes Hx Hypertension Yes Respiratory History Hx Respiratory Disorders No Significant History Gastrointestinal History Hx Gastrointestinal Disorders No Significant History Genitourinary History Hx Genitourinary Disorders No Significant History Musculoskeletal History Hx Musculoskeletal Disorders No Significant History Hematological History Hx Other Hematological Disorders Yes: vitamin D def Endocrine History Hx Endocrine Disorders No Significant History HEENT History Hx HEENT Disorders No Significant History Integumentary History Hx Skin Disorders No Significant History Reproductive History Hx Reproductive Disorders No Significant History Psychosocial History Hx Psychiatric Disorders No Significant History Pain History History of Any Previous or Ongoing No Significant History Instance of Pain Anesthesia History Hx Anesthesia Reactions No Significant History Evaluation Information Problem Diagnosis CVA Onset 01/07/21, 11/2020 Subjective Information Patient states that she has Query Text:As Reported By Patient/ been having left shoulder pain Family since her CVA. She states she has been trouble with hand strength and coordination during ADLs which has limited her ability to do tasks in the kitchen safely. Her daughter has been doing all of her cooking right now. Prior Level of Function Activity Level (Last 3 Months) Occupation does not work Hand Dominance Right Activity of Daily Living Ability Independent Indoor/Home Mobility Independent Community Mobility Independent Stairs Ability Independent Functional Cognition (Planning, Shopping Independent , Taking Medications) Cooking Yes Cleaning Yes Laundry
--- NOTE | 2021-03-14 15:42 | PCSTNOTE ---
Patient did not show up for scheduled appointment which was her re evaluation on this date.
--- NOTE | 2021-03-20 08:25 | PCSTNOTE ---
SPEECH THERAPY DISCHARGE: Attending Provider: Shilpa Talavera PA-C Patient:Alexandre Claros Date of :1955 Patient has not returned for any further treatments since 03/08/2021, therefore she will be discharged at this time. Patient?s initial visit was on 02/21/2021 07:30 and she had a total of 5 visits. The goals have actually been met. Thank you for referring this patient to [facility]. Please review, sign, date and return this discharge summary EDOUARD. I have been updated about the patient's current status and I agree with discharge from the above service at this time. Referring Physician Date
--- NOTE | 2021-03-21 15:14 | OTOPEVAL ---
OCCUPATIONAL THERAPY RE-EVALUATION AND D/C NOTE 03/21/21 As described below, patient has made excellent progress toward normal functional use of BUEs. Strength and coordination are now within normal limits. No further skilled OT indicated at this time. Thank you for referring Alexandre Claros to [facility]. Please review, sign, date and return this D/C Note EDOUARD. I agree with and certify that the following plan of care is medically necessary. Referring Physician Date Referring Provider: Shilpa Talavera PA-C *OT Outpatient Evaluation Start: 03/01/21 14:05 Evaluation Information Problem Diagnosis CVA Onset 01/07/21, 11/2020 Additional Evaluation Detail Patient presents today for OT re-evaluation. She has attended the initial evaluation and 1 treatment session. She has been a no show for the other 2 scheduled treatment sessions. Subjective Information Patient states that she Query Text:As Reported By Patient/ stopped taking all of her Family medications and now she no longer has any pain. She states her speech has improved and reports reduced brain fog . She states she has returned to doing everything she needs to do for herself independently. No longer reports any functional limitations. States she has not followed up with a network control technician. Strongly recommended to the patient that she needs to contact Dr. Quiros for further cardiology work up, especially considering she took herself off all prescribed medications . Pain Assessment Timing of Pain Assessment Timing of Pain Assessment Assessment Self Report Self Report Pain Level 0 Pain Score Pain Score 0: Self Report Upper Extremity Range of Motion General Upper Extremity Range of Motion Reason Not Measured WNL/Left,WNL/Right Upper Extremity Muscle Strength Testing Scapular/Shoulder Right Shoulder Flexion Strength 5 Normal Shoulder Extension Strength 5 Normal Shoulder Abduction Strength 5 Normal Shoulder Adduction Strength 5 Normal Shoulder Medial Rotation Strength 4+ Good + Shoulder Lateral Rotation Strength 4+ Good + Left Shoulder Elevation - Upper Trapezius 5 Normal Scapular Retract
== END 2021-03-22 12:49 | disposition home or self-care (01) ==
LOC: ANHOT 14:30
PROVIDERS: PCP Family Medicine; Visit Provider Physician Assistant
DX: I69.222 Dysarthria following other nontraumatic intracranial hemorrhage (principal)
CPT/HCPCS: 92507; 92522; 97110; 97161; 97165

== ENCOUNTER 2022-09-19 12:20 | Emergency (ER) | payer MEDICARE, MEDICAID, SELFPAY ==
--- NOTE | ~2022-09-19 | CT_ITS ---
EXAMINATION: CT brain wo con DATE: 09/19/2022 16:57 INDICATION: Frontal headache for 4 days. Intermittent dizziness. Sinus congestion. TECHNIQUE: Computed tomography (CT) of the head was performed without intravenous contrast. The mA wa s adjusted according to patient size. Iterative reconstruction technique was employed. Exam dose: 60 5.33 mGy-cm total exam DLP. COMPARISON: February 08, 2021 MRI brain/brainstem January 3104/2021 CT brain FINDINGS: Chronic bilateral basal ganglia lacunar infarcts. Bilateral carotid siphon internal carotid artery calcifications. There is nonspecific diminished attenuation of the cerebral white matter, lik ismael due to chronic small vessel ischemic changes. No intracranial mass lesion or hemorrhage, midline shift or mass effect. No subdural or epidural malik cristofer. The mastoid air cells and included paranasal sinuses are normally developed and aerated. No fracture or bone destruction of the cranial vault. IMPRESSION: Cerebral atherosclerosis and chronic small vessel ischemic changes of the cerebral white matter Chronic bilateral basal ganglia lacunar infarcts Reviewed, dictated and finalized at [facility]. Reviewed, dictated and finalized at [facility]. [employer]
[2022-09-19 12:36] VITALS: BP 127/57; PULSE 69; RESP 20; TEMP 36.3; O2SAT 99
--- NOTE | 2022-09-19 16:45 | ED.GENADULT ---
HPI - General Adult General Chief complaint: Headache Stated complaint: NUNN with dizziness x 1 week Time Seen by Provider: 09/19/22 16:26 History of Present Illness HPI narrative: 67-year-old female presenting to the emergency department for evaluation of persistent headache. Patient reports he does have a prior history of CVA. Patient reports she does have history of migraines as well. Patient states that her migraines seem to be seasonal and affect her when the weather turns cold. Patient states she does have some residual left-sided deficit from her prior CVA and reports no acute changes in this left-sided weakness. Patient denies any other pain or complaints. Patient has not had a follow-up with her primary care physician for this. Related Data Home Medications Medication Instructions Recorded Confirmed amlodipine 5 mg tablet 5 mg PO DAILY 02/08/21 02/08/21 atorvastatin 40 mg tablet 40 mg PO DAILY 02/08/21 02/08/21 ergocalciferol (vitamin D2) 1,250 1,250 mcg PO WEEKLY 02/08/21 02/08/21 mcg (50,000 unit) capsule nicotine 21 mg/24 hr daily 21 mg transdermal DAILY 02/08/21 02/08/21 transdermal patch Allergies Allergy/AdvReac Type Severity Reaction Status Date / Time No Known Allergies Allergy Verified 09/19/22 12:21 Review of Systems Review of Systems: CONSTITUTIONAL: Denies fever, chills, or sweats. EYES: Denies visual changes, redness, or discharge. ENT: Denies rhinorrhea, congestion, sore throat, or otalgia. CARDIOVASCULAR: Denies chest pain, palpitations, or edema. RESPIRATORY: Denies cough or dyspnea. GASTROINTESTINAL: Denies abdominal pain, nausea, vomiting, or diarrhea. GENITOURINARY: Denies dysuria or hematuria. SKIN: Denies rash or itching. MUSCULOSKELETAL: Denies back pain, joint pain, or myalgia. NEUROLOGIC: Headache similar to her previous migraines, see HPI [facility] Past Medical History Medical History History of COVID-02 December 2020 History of CVA (cerebrovascular accident) November 2020 at [facility] Hypertension Family History Family History Mother Family history of malignant neoplasm of cervix Father No family history of malignant neoplasm Social History Social History Social History: Patient states that she quit smoking about 3 weeks ago and prior to that she smoked 7 cigarettes a day. She does not smoke marijuana, do drugs, or drink alcohol. She is retired cleaning personnel. She would like to be a full code. She has no allergies to food or medications Smoking status: Former smoker Second hand tobacco smoke exposure: No Smoking end date: 10/14/10 Alcohol intake: never Substance use: never Substance use type: does not use Gender identity (if verbalized by the patient): Female Spiritual care concerns: No Exam Narrative: APPEARANCE: Well appearing, no pain, no distress, well-nourished. HEAD: normocephalic, atraumatic. EYES: PERRLA/EOMI, conjunctivae clear. NOSE: Normal no drainage NECK: Supple. No adenopathy, no masses. RESPIRATORY: Airway patent, respirations nonlabored. Clear to auscultation bilaterally, no rales, rhonchi, wheezing. CARDIOVASCULAR: Regular rate and rhythm without murmurs rubs or gallops. ABDOMINAL: Soft, nontender, nondistended, normal bowel sounds MUSCULOSKELETAL: Moves all extremities. Strength/ROM intact, No edema, No calf tenderness. NEURO: Alert. Cranial nerves II through XII intact. Grossly intact SKIN: Warm, dry. Normal Color Course Course Emergency Course: Patient reports she feels it to be improved with migraine treatment. Patient had a normal comprehensive neuro exam. Patient was negative for COVID and flu. Patient's head CT showed no acute intracranial abnormality. Patient was comfortable with the plan for discharge and close follow-up. Patient will also be provided neurology
[2022-09-19 17:49] LABS: Influenza A QL RT-PCR Negative (Negative); Influenza B QL RT-PCR Negative (Negative); SARS-CoV-2 RNA PCR Negative
[2022-09-19] MEDS: SODIUM CHLORIDE 0.9% IV 1,000 ML 999 ML IV CONT (18:39)
[2022-09-19] MEDS: PROCHLORPERAZINE EDISYLATE 10 MG/2 ML VIAL IV PUSH (18:51)
[2022-09-19] MEDS: KETOROLAC 15 MG/ML VIAL (*BKC) IV PUSH (18:51)
[2022-09-19] MEDS: diphenhydrAMINE HCl INJ 50 MG/ML VIAL 25 MG IV PUSH (18:52)
[2022-09-19 20:52] VITALS: PULSE 76; RESP 18; O2SAT 96
== END 2022-09-19 20:53 | disposition home or self-care (01) ==
PROVIDERS: Emergency Provider Emergency Medicine
DX: G43.909 Migraine, unspecified, not intractable, without status migrainosus (principal); Z20.822 Contact with and (suspected) exposure to COVID-19; I10 Essential (primary) hypertension; Z86.16 Personal history of COVID-19; Z86.73 Personal history of transient ischemic attack (TIA), and cerebral infarction without residual deficits
CPT/HCPCS: 70450; 87636; 96361; 96374; 96375; 99284; J0780; J1200; J1885; J7030